=== PATIENT | male | born 1960 | race African-American/Black ===

== ENCOUNTER 2018-11-03 00:30 | Emergency (ER) | payer MEDICAID, OTHER ==
[~2018-11-03] VITALS: Ht 177.8 cm; Wt 74.8 kg
[2018-11-03 00:55] VITALS: BP 98/64
[2018-11-03] MEDS ORDERED: LIDOCAINE 1% Multi-Dose 20 ML VIAL. INJ ONE (04:00)
[2018-11-03] MEDS ORDERED: HYDROcodone/APAP 7.5/325MG 1 TAB TABLET PO ONE (04:00)
[2018-11-03] MEDS ORDERED: DIPHTH,PERTUSS(ACELL),TET TOX 0.5 ML DISP.SYRIN. VAX IM ONE (04:00)
[2018-11-03] MEDS ORDERED: CEPH-264 PO (05:37)
[2018-11-03] MEDS ORDERED: TRAM50TA PO (05:37)
--- NOTE | 2018-11-03 05:37 | PHYS DOC ---
Past Medical History Past Medical History: ID Past Surgical History: Coronary Bypass Surgery Alcohol Use: Occasionally Drug Use: None Adult General Chief Complaint Chief Complaint: LACERATION/AVULSION [facility] HPI Patient is a 58-year-old male who presents with laceration to his right hand that he sustained while he was working on his car. Patient states that he was trying to change his brakes and when he was trying to get the wheel housing off , his hand slipped and caught his hand against one of the lugs. Patient rates his pain as moderate. Review of Systems Review of Systems Constitutional: Denies fever or chills [] Respiratory: Denies cough or shortness of breath [] Cardiovascular: No additional information not addressed in HPI [] Musculoskeletal: Positive right hand pain [] Integument: As of laceration right hand[] Current Medications Current Medications Current Medications Medications (Trade) Dose Ordered Sig/Adilson Start Time Stop Time Status Last Admin Dose Admin Acetaminophen/ Hydrocodone Bitart (Lortab 7.5/325) 1 tab 1X ONCE 11/03/18 04:00 11/03/18 04:01 DC 11/03/18 03:44 1 TAB Diphtheria/ Tetanus/Acell Pertussis (Boostrix) 0.5 ml ONCE ONCE 11/03/18 04:00 11/03/18 04:01 DC 11/03/18 03:43 0.5 ML Lidocaine HCl (Lidocaine 1% 20ml Vial) 20 ml 1X ONCE 11/03/18 04:00 11/03/18 04:01 DC 11/03/18 03:44 20 ML Allergies Allergies Allergies Coded Allergies Type Severity Reaction Last Updated Verified No Known Drug Allergies 11/03/18 No Physical Exam Physical Exam Constitutional: Well developed, well nourished, no acute distress, non-toxic appearance. [] Cardiovascular:Heart rate regular rhythm, no murmur [] Lungs & Thorax: Bilateral breath sounds clear to auscultation [] Skin: There is a 5 cm laceration noted to the dorsal aspects of the right hand at the base of the thumb. Laceration extends into the subcutaneous tissue. Margins are fairly sharp but irregular, No foreign body identified. Tendon function is intact. There is slight anesthesia present distal to the wound on the dorsal aspect of the thumb. [] Extremities: No cyanosis, no clubbing, ROM intact, no edema. See description above laceration above. [] Current Patient Data Vital Signs Vital Signs Date Time Temp Pulse Resp B/P (MAP) Pulse Ox O2 Delivery O2 Flow Rate FiO2 11/03/18 00:55 98.7 100 18 98/64 (75) 95 Room Air 98.7 EKG EKG [] Radiology/Procedures Radiology/Procedures [] Course & Med Decision Making Course & Med Decision Making Pertinent Labs and Imaging studies reviewed. (See chart for details) Laceration Repair by me: Anesthesia: 1% lidocaine locally Location: Dorsal aspect of right hand and base of right thumb Tendon/Joint/Nerves: No injury Foreign body: None detected after copious irrigation and exploration Technique: A total of 15 Simple Interrupted Sutures were placed utilizing 5-0 Prolene suture material Complexity: No subcutaneous sutures/mucosal repair/edge excision Post Closure Length: 5 cm Patient's bleeding was easily controlled in the department and there is no indication of anemia. No evidence of compartment syndrome, neurologic injury, vascular injury, open joint, tendon laceration, or foreign body. Patient is appropriate for outpatient follow up. 48 hour wound check. Scar minimization instructions given. Dragon Disclaimer Dragon Disclaimer This electronic medical record was generated, in whole or in part, using a voice recognition dictation system. Departure Departure Impression: Primary Impression: Laceration of right hand Disposition: 01 HOME, SELF-CARE Condition: STABLE Referrals: NO PCP (PCP) Patient Instructions: Laceration Care, Adult Additional Instructions: Return for suture removal in 10-14 days. Scripts Tramadol Hcl (TRAMADOL HCL) 50 Mg Tablet 50 MG PO Q6HRS PRN for PAIN, #10 TAB Prov: CARYN HILL Jr. DO 11/03/18 Cephalexin (KEFLEX) 500 Mg Capsule 1 CAP PO BID, #14 CAP Prov: CARYN HILL Jr. DO 11/03/18 Problem Qualifiers Primary Impression: Laceration of right hand Encounter type: initial encounter Foreign body presence: without foreign body Qualified Codes: S61.411A - Laceration without foreign body of right hand , initial encounter CARYN HILL Jr. DO Nov 03, 2018 05:37
== END 2018-11-03 05:45 | disposition home or self-care (01) ==
LOC: ER 00:30
DX: S61.411A Laceration without foreign body of right hand, initial encounter (principal); I25.2 Old myocardial infarction; Z95.1 Presence of aortocoronary bypass graft; W23.0XXA Caught, crushed, jammed, or pinched between moving objects, initial encounter; Y93.89 Activity, other specified; Y92.89 Other specified places as the place of occurrence of the external cause; Y99.8 Other external cause status
CPT/HCPCS: 12002; 90471; 90715; 99283

== ENCOUNTER 2019-03-09 00:48 | Emergency (ER) | payer OTHER ==
[~2019-03-09] VITALS: Ht 177.8 cm; Wt 63.5 kg
[~2019-03-09 00:48] MED LIST: CEPH-264 PO; NAPR-683 PO; ONDA4TAB7 PO; TRAM50TA PO
[2019-03-09] MEDS ORDERED: HYDROcodone/APAP 5/325MG 1 TAB TABLET PO ONE (01:30)
[2019-03-09] MEDS ORDERED: IPRATRPIUM/ALBUTEROL 0.5/2.5MG 3 ML NEBU. NEB ONE (01:30)
[2019-03-09 01:36] LABS: BASO # 0.1 x10^3/uL (0.0-0.2); BASO % 2 % (0-3); EOS # 0.2 x10^3/uL (0.0-0.7); EOS % 4 % (0-3); HEMATOCRIT 32.7 % (39.0-53.0); HEMOGLOBIN 10.9 g/dL (13.0-17.5); LYMPH # 2.1 x10^3/uL (1.0-4.8); LYMPH % 38 % (24-48); MEAN CORPUSCULAR HEMOGLOBIN 30 pg (25-35); MEAN CORPUSCULAR HGB CONC 34 g/dL (31-37); MEAN CORPUSCULAR VOLUME 89 fL (79-100); MONO # 0.4 x10^3/uL (0.0-1.1); MONO % 8 % (0-9); NEUT # 2.7 x10^3/uL (1.8-7.7); NEUT % 49 % (31-73); PLATELET COUNT 153 x10^3/uL (140-400); RED BLOOD COUNT 3.65 x10^6/uL (4.30-5.70); RED CELL DISTRIBUTION WIDTH 15.3 % (11.5-14.5); WHITE BLOOD COUNT 5.5 x10^3/uL (4.0-11.0)
[2019-03-09 01:44] LABS: CALCIUM 9.2 mg/dL (8.5-10.1); CREATININE 0.9 mg/dL (0.7-1.3); GFR 105.2; POTASSIUM 3.6 mmol/L (3.5-5.1)
[2019-03-09 01:51] LABS: ALBUMIN 3.5 g/dL (3.4-5.0); ALBUMIN/GLOBULIN RATIO 0.9 (1.0-1.7); TOTAL BILIRUBIN 0.3 mg/dL (0.2-1.0); TOTAL PROTEIN 7.4 g/dL (6.4-8.2)
[2019-03-09] MEDS ORDERED: HYDR-3164 PO (02:19)
[2019-03-09 02:27] VITALS: BP 161/92
--- NOTE | 2019-03-09 04:26 | RAD ---
EXAM: CHEST ONE VIEW. HISTORY: Shortness of breath. COMPARISON: None. FINDINGS: A frontal view of the chest is obtained. There are changes of coronary artery bypass grafting. There are no confluent infiltrates. A nodule in the right mid lung measures 7 mm and most likely represents a calcified granuloma given visibility at this small size. Lungs are expanded to the 11th posterior interspaces. There is no pneumothorax or pleural effusion. The heart is moderately enlarged. The main pulmonary artery appears enlarged. IMPRESSION: 1. A 7 mm right midlung nodule is most likely a benign calcified granuloma. Correlate with older studies to confirm stability. 2. Correlate for chronic obstructive pulmonary disease. 3. Moderate cardiomegaly. Changes of pulmonary arterial hypertension. Electronically signed by: Carmen Garcia MD (03/09/2019 4:24 AM) [facility]
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
--- NOTE | 2019-03-09 05:36 | EKG ---
[facility] [address] [place] [address] Test Date: 2019-03-09 Test Time: 00:54:41 Pat Name: KRISTAL JAIN Department: Room: Gender: M Waste [employer]: : 1960 Requested By: DELORIS OVIEDO Order Number: [id number] Reading MD: Te Babcock Measurements Intervals [place] Rate: 90 P: 90 MD: 152 QRS: -6 QRSD: 102 T: 104 QT: 378 QTc: 467 Interpretive Statements SINUS RHYTHM LEFT ATRIAL ABNORMALITY LEFTWARD AXIS QRS(T) CONTOUR ABNORMALITY CONSIDER INFERIOR MYOCARDIAL DAMAGE T ABNORMALITY IN LATERAL LEADS ABNORMAL ECG RI6.01 No previous ECG available for comparison Electronically Signed On 03-12-2019 10:03:47 CDT by Te Babcock
== END 2019-03-09 03:03 | disposition home or self-care (01) ==
LOC: ER 00:48
DX: F10.129 Alcohol abuse with intoxication, unspecified (principal); Y90.2 Blood alcohol level of 40-59 mg/100 ml; R06.02 Shortness of breath; Z76.0 Encounter for issue of repeat prescription; M54.6 Pain in thoracic spine; E78.00 Pure hypercholesterolemia, unspecified; I10 Essential (primary) hypertension; I25.10 Atherosclerotic heart disease of native coronary artery without angina pectoris; I25.2 Old myocardial infarction; Z95.5 Presence of coronary angioplasty implant and graft; Z90.49 Acquired absence of other specified parts of digestive tract
CPT/HCPCS: 36415; 71045; 80053; 84484; 85025; 93005; 94640; 99285; G0480; J7620

== ENCOUNTER 2020-09-07 18:25 | Emergency (ER) | payer OTHER ==
[~2020-09-07] VITALS: Ht 177.8 cm; Wt 79.5 kg
[~2020-09-07 18:25] MED LIST changes: +HYDR-3164 PO
[2020-09-07 19:00] VITALS: BP 138/75
[2020-09-07] MEDS ORDERED: BENZ100C PO (19:10)
--- NOTE | 2020-09-07 19:10 | PHYS DOC ---
Past Medical History Past Medical History: CAD, High Cholesterol, Hypertension, [place], Other Additional Past Medical Histor: [facility] 01/23/19 (LAURA BOWEN APRN) Past Surgical History: Colectomy, Coronary Bypass Surgery (LAURA BOWEN APRN) Smoking Status: Current Every Day Smoker Alcohol Use: Sober Drug Use: Marijuana (LAURA BOWEN APRN) General Adult EDM: Chief Complaint: COUGH HPI: HPI: Patient is a 60 year old male with history of hypertension, high cholesterol, CAD, who presents to the ED today complaining of cough that has been going on for 2 months. Patient reports being seen by the PCP and started on Levaquin and codeine with promethazine around July 03, 2020. He was also started on inhalers and encouraged to consider smoking cessation. He states a month ago he was seen at , they did x-rays which were negative. He states he would like a refill of his codeine with promethazine today. Initially stated he has TB, when I asked him how long he has had TB he stated for years. He states he was treat ed (LAURA BOWEN APRN) Review of Systems: Review of Systems: Constitutional: Denies fever or chills. [] Eyes: Denies change in visual acuity. [] HENT: Denies nasal congestion or sore throat. [] Respiratory: Reports cough, denies shortness of breath. [] Cardiovascular: Denies chest pain or edema. [] GI: Denies abdominal pain, nausea, vomiting, bloody stools or diarrhea. [] : Denies dysuria. [] Musculoskeletal: Denies back pain or joint pain. [] Integument: Denies rash. [] Neurologic: Denies headache, focal weakness or sensory changes. [] Psychiatric: Denies depression or anxiety. [] (LAURA BOWEN APRN) Heart Score: Risk Factors: Risk Factors: DM, Current or recent (<one month) smoker, HTN, HLP, family history of CAD, obesity. Risk Scores: Score 0 - 3: 2.5% MACE over next 6 weeks - Discharge Home Score 4 - 6: 20.3% MACE over next 6 weeks - Admit for Clinical Observation Score 7 - 10: 72.7% MACE over next 6 weeks - Early Invasive Strategies (LAURA BOWEN APRN) Allergies: Allergies: Allergies Coded Allergies Type Severity Reaction Last Updated Verified No Known Drug Allergies 11/03/18 No (LAUAR BOWEN APRN) Physical Exam: PE: Constitutional: Well developed, well nourished, no acute distress, non-toxic appearance. [] HENT: Normocephalic, atraumatic, bilateral external ears normal, oropharynx moist, no oral exudates, nose normal. [] Eyes: PERRLA, EOMI, conjunctiva normal, no discharge. [] Neck: Normal range of motion, no tenderness, supple, no stridor. [] Cardiovascular:Heart rate regular rhythm, no murmur [] Lungs & Thorax: Bilateral breath sounds clear to auscultation [] Abdomen: Bowel sounds normal, soft, no tenderness, no masses, no pulsatile masses. [] Skin: Warm, dry, no erythema, no rash. [] Back: No tenderness, no CVA tenderness. [] Extremities: No tenderness, no cyanosis, no clubbing, ROM intact, no edema. [] Neurologic: Alert and oriented X 3, normal motor function, normal sensory function, no focal deficits noted. [] Psychologic: Affect normal, judgement normal, mood normal. [] (LAURA BOWEN APRN) EKG: EKG: [] (LAURA BOWEN APRN) Radiology/Procedures: Radiology/Procedures: [] (LAURA BOWEN APRN) Course & Med Decision Making: Course & Med Decision Making Pertinent Labs and Imaging studies reviewed. (See chart for details) This is a 60-year-old male patient presented to the ED today requesting a refill of codeine with promethazine for cough he has had for 2 months. Patient has been seen by the PCP and was given Levaquin and codeine with promethazine. This was July 03, 2020. He states he completed the antibiotics as well as the continue promethazine. He states he went to [facility] and was also seen and they did a chest x-ray which was negative. At some point he stated he has TB. When I inquired more about this he retracted stating he was treated years ago. Inquired if we can do a Covid test, he refused Informed patient we should consider doing a chest x-ray considering how long his symptoms have been going on, he states already did a chest x-ray and he does not want any more x-rays. He states he would like a refill of codeine with promethazine. Informed patient we will give him Tessalon Perles. Discharge to home. Follow-up with PCP (LAURA BOWEN APRN) Tray Disclaimer: Tray Disclaimer: This electronic medical record was generated, in whole or in part, using a voice recognition dictation system. (LAURA BOWEN APRN) Departure Departure Impression: Primary Impression: Cough Disposition: 01 DC HOME SELF CARE/HOMELESS Condition: STABLE Referrals: BHARATI MCDANIELS JR, MD (PCP) Follow-up in 1 to 2 weeks Patient Instructions: Cough, Adult, [id number] Additional Instructions: You were seen for a cough. Please follow-up with your primary care doctor. Take the prescribed medication as needed for your cough Scripts Benzonatate (TESSALON PERLE) 100 Mg Capsule 1 CAP PO TID, #30 CAP Prov: LAURA BOWEN APRN 09/07/20 Attending Signature Attending Signature I have reviewed the PA/PAPER WOOD CUTTER's note and plan of care. I was available for consultation as needed during the patient's visit in the emergency department. I agree with the clinical impression, plan, and disposition. (ESMER MAS DO) LAURA BOWEN APRN Sep 07, 2020 19:10 ESMER MAS DO Sep 08, 2020 00:03
== END 2020-09-07 19:15 | disposition home or self-care (01) ==
LOC: ER 18:25
DX: R05 Cough (principal); I10 Essential (primary) hypertension; E78.00 Pure hypercholesterolemia, unspecified; I25.2 Old myocardial infarction; I25.10 Atherosclerotic heart disease of native coronary artery without angina pectoris; F17.200 Nicotine dependence, unspecified, uncomplicated
CPT/HCPCS: 99283